=== PATIENT | male | born 1980 | race Caucasian/White ===

== ENCOUNTER → 2020-11-12 | Emergency (ER) | payer SELFPAY ==
--- OUTSIDE RECORDS SUMMARY | 2020-11-13 09:46 | XMS REPORT | Continuity of Care Document ---
:1980 Author Organization [facility] t Address 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 09-21 Family disease Disease 00:00: Practic 00 e Gastroesop Gastroesop Problem Active [facility] illage hageal hageal 09-21 Family reflux Reflux 00:00: Practic disease Disease 00 e without without esophagiti Esophagiti s s 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 00:00: Practi c kidney Kidney 00 e Allergies, Adverse Reactions, Alerts Allergy Allergy Status Severity Reaction(s) Onset Inactive Treating Comm ents Source Name Type Date Date Clinician NUT - Allergy Active [place] UNSPECIF to Family IED substanc Practic e e Family History Family Member Diagnosis Comments Start Date Stop Date Source Natural sister No Known Problems Met [facility] Natural brother No Known Problems [facility] Natural father GERD [facility] Natural father [facility] Maternal grandfather [facility] Maternal grandmother [facility] Natural mother No Known Problems Met [facility] Paternal grandfather [facility] Paternal grandmother No Known Problems [facility] Social History Social Habit Start Date Stop Date Quantity Comments Source Tobacco use and 2016-09-27 2016-09-27 [facility] used [facility] 00:[facility]00 Hospital Alcohol intake 2016-09-27 2016-09-27 [facility] 00:[facility]00 00:00:00 alcohol (finding) Hospita l Alcohol Comment 2016-09-27 2016-09-27 occasional [facility] 00:[facility]:00 Hospital Sex Assigned At [birth year] [facility] 00:[facility] Smoking Status Start Date Stop Date Source Former [facility] Medications Ordered Filled Start Stop Current Ordering Indication Dosage Frequency Signature Comments Components Source Medication Medication Date Date Medication? Clinician (SIG) Name Name cholecalcif Yes [id number] 2000U QD Take 1 [facility], 6-[address] vitamin D3, 00:00: (2,000 [facility]osp [facility] (VITAMIN 00 Units l D3) 2,000 total) by unit mouth capsule daily. capsule losartan Yes 25mg QD Take 25 mg [facility] (COZAAR) 25 -[address] MG tablet 14:58: daily. Hospit a 22 l loratadine Yes 10mg QD Take 10 mg M [facility]i (CLARITIN) 6-[address] 10 mg 14:58: daily. Hospita tablet 22 l fexofenadin Yes 180mg QD Take 180 M ethodi e (MED) 6-[address] 180 MG 14:58: mouth Hospita tablet 22 daily. l IODINE ORAL Yes Take by [facility] 6-[address] 14:58: Hospita 22 l albuterol Yes [id number] 2{puff} Q6H Inhale 2 [facility] (PROVENTIL 6-[address] HFA) 90 00:00: every 6 Hospita mcg/actuati 00 (six) l on inhaler hours as needed for wheezing. omeprazole 2017-0 Yes [id number] 40mg QD Take 1 [facility] (PriLOSEC) 6-[address] 40 MG 00:00: (40 mg Hospita capsule 00 total) by l mouth daily. escitalopra escitalopra No 1 Q1D escitalopr [place] m 10 mg m 10 mg am 10 mg Famil y tablet Take tablet Take tablet Practic 1 tablet 1 tablet Take 1 e every day every day tablet by oral by oral every day route. route. by oral route. omeprazole omeprazole No omeprazole [facility] 40 mg 40 mg 40 mg Family capsule,del capsule,del capsule,de Practic ayed ayed layed e release release release Take 1 Take 1 Take 1 capsule capsule capsule every day every day every day by oral by oral by oral route as route as route as needed. needed. needed. ProAir HFA ProAir HFA No 2puff(s Q6H ProAir HFA [facility] 90 90 ) 90 Family mcg/actuati mcg/actuati mcg/actuat Practic on aerosol on aerosol ion e inhaler inhaler aerosol Inhale 2 Inhale 2 inhaler puffs every puffs every Inhale 2 6 hours by 6 hours by puffs inhalation inhalation every 6 route as route as hours by needed. needed. inhalation route as needed. Immunizations Ordered Immunization Filled Immunization Date Status Commen ts Source Name Name influenza, influenza, 2019-01-09 Completed [facility] injectable, injectable, 00:00:00 Practice quadrivalent quadrivalent influenza, influenza, 2017-12-07 Completed [facility] injectable, injectable, 16:38:00 Practice quadrivalent, quadrivalent, preservative free preservative free influenza, influenza, 2016-12-10 Completed [facility] unspecified unspecified 00:00:00 Practice formulation formulation Tdap 2014-12-10 Completed [facility] Tdap Tdap 2014-04-11 Completed [facility] 00:00:00 Practice Meningococcal 2001-12-10 Completed [facility] Conjug[facility] 00:00:00 Hospital Vital Signs Vital Name Observation Time Observation Value Comments Source BP Diastolic 2019-02-08 00:00:00 72 mm[Hg] [facility] Height 2019-02-08 00:00:00 70 [in_i] [facility] BMI (Body Mass 2019-02-08 00:00:00 26.4 kg/m2 [facility] Index) Practice BP Systolic 2019-02-08 00:00:00 130 mm[Hg] [facility] Body Weight 2019-02-08 00:00:00 184 [lb_av] [facility] Procedures Procedure Date / Time Performed Performing Clinician Sourc e Tonsilectomy/adenoids 1987-04-11 00:00:00 [facility] Ear Tube 1986-04-11 00:00:00 [facility] ly [facility] Plan of Care Planned Activity Planned Date Details Comments Source Diagnostic Test 2019-02-08 CBC w/ auto diff [facility] Pending 00:00:00 [code = CBC w/ auto Practice diff] Diagnostic Test 2019-02-08 CMP, serum or [facility] Pending 00:00:00 plasma [code = CMP, Practice serum or plasma] Diagnostic Test 2019-02-08 TSH, serum or [facility] Pending 00:00:00 plasma [code = TSH, Practice serum or plasma] Diagnostic Test 2019-02-08 lipid panel, serum [facility] Pending 00:00:00 [code = lipid Practice panel, serum] Future Scheduled Test COVID-19 VACCINE [facility] (1) [code = COVID-19 VACCINE (1)] Future Scheduled Test INFLUENZA VACCINE [facility] [code = INFLUENZA VACCINE] Instructions [facility] Encounters Start End Encounter Admission Attending Care Care Encounter Source Date/Time Date/Time Type Type Clinicians Facility Department ID 2019-02-08 2019-02-08 Saul Scott [facility] [place] - [id number] 1 [facility] 00:00:00 00:00:00 MD Karmen: [facility] y [address] [facility], Practice - [address], [place] [address] , Ph. Results Test Description Test Time Test Comments Results Result Comments Source BASIC METABOLIC PANEL 2019-07-03 13:10:00 Test Item Value Reference Range Interpretation Comme nts SODIUM (test code = NA) 138 mmol/L 134-147 N POTASSIUM (test code = K) 3.9 mmol/L 3.4-5.0 N CHLORIDE (test code = CL) 103 mmol/L 100-108 N CARBON DIOXIDE (test code = CO2) 29 mmol/L 21-32 N ANION GAP (test code = GAP) 6.0 GAP calc 4.0-15.0 N GLUCOSE (test code = GLU) 93 MG/DL 70-110 N BLOOD UREA NITROGEN (test code = BUN) 11 MG/DL 7-18 N GLOMERULAR FILTRATION RATE (test code = GFR) >=60 max estimate estG FR >60 CREATININE (test code = CREAT) 1.2 MG/DL 0.8-1.3 N CALCIUM (test code = CA) 8.8 MG/DL 8.5-10.1 N URIC [id number] 13:10:00 Test Item Value Reference Range Interpretation Comments URIC ACID (test code = URIC) 4.2 MG/DL 3.5-8.5 N CBC W/AUTO [id number] 13:00:00 Test Item Value Reference Range Interpretation Comments WHITE BLOOD CELL (test code = 6.3 K/mm3 3.5-11.0 N WBC) RED BLOOD CELL (test code = RBC) 4.98 M/mm3 4.70-6.10 N HEMOGLOBIN (test code = HGB) 14.9 G/DL 12.3-15.9 N HEMATOCRIT (test code = HCT) 45.5 % 35.8-46.7 N MEAN CELL VOLUME (test code = 91.4 Fl 86.3-98.9 N MCV) MEAN CELL HGB (test code = MCH) 29.9 pg 28.9-34.4 N MEAN CELL HGB CONCETRATION (test 32.7 G/DL 32.1-34.5 N code = MCHC) RED CELL DISTRIBUTION WIDTH (test 12.7 SD 11.5-14.5 N code = RDW) PLATELET COUNT (test code = PLT) 227.0 K/mm3 150-450 N MEAN PLATELET VOLUME (test code = 9.30 fL 7.0-9.6 N MPV) NEUTROPHIL % (test code = NT%) 55.8 % 40-76 N LYMPHOCYTE % (test code = LY%) 28.5 % 20.5-51.1 N MONOCYTE % (test code = MO%) 11.1 % 1.7-9.3 H EOSINOPHIL % (test code = EO%) 4.1 % 0.0-6.0 N BASOPHIL % (test code = BA%) 0.5 % 0.0-2.0 N NEUTROPHIL # (test code = NT#) 3.53 K/mm3 1.8-7.6 N LYMPHOCYTE # (test code = LY#) 1.8 K/mm3 0.6-3.0 N MONOCYTE # (test code = MO#) 0.7 K/mm3 0.2-1.5 N EOSINOPHIL # (test code = EO#) 0.3 K/mm3 0.0-0.4 N BASOPHIL # (test code = BA#) 0.0 K/mm3 0.0-0.2 N MANUAL DIFF REQUIRED (test code = NO DIFF/SCN CRITERIA MDIFF) UA RFLX MICR CULT IF [id number] 12:56:00 Test Item Value Reference Range Interpretation Comments UA COLOR (test code = COLU) YELLOW discript YEL/STRAW UA APPEARANCE (test code = CLEAR discript CLEAR APPU) UA GLUCOSE DIPSTICK (test NEGATIVE mg/dL NEG code = DGLUU) UA BILIRUBIN DIPSTICK (test NEGATIVE mg/dL NEG code = BILU) UA KETONE DIPSTICK (test NEGATIVE mg/dL NEG code = KETU) UA SPECIFIC GRAVITY (test 1.015 SG 1.005-1.030 code = SGU) UA BLOOD DIPSTICK (test NEGATIVE mg/DL NEG code = JEAN PAUL) UA PH DIPSTICK (test code = 6.0 pH UNITS 5.0-7.0 ZEB) UA PROTEIN DIPSTICK (test NEGATIVE mg/dL NEG code = PROU) UA UROBILINIOGEN DIPSTICK 0.2 mg/dL <2.0 (test code = URO) UA NITRITE DIPSTICK (test NEGATIVE SCREEN NEG code = MAICO) UA LEUKOCYTE ESTERASE NEGATIVE Leuk/mcL NEGATIVE DIPSTICK (test code = LEUU) UA CULTURE NEEDED? (test Criteria Culture CHK code = UACULT) UA RFLX MICR CULT IF [id number] 12:56:00 Test Item Value Reference Range Interpretation Comments UA COLOR (test code = COLU) YELLOW discript YEL/STRAW UA APPEARANCE (test code = CLEAR discript CLEAR APPU) UA GLUCOSE DIPSTICK (test NEGATIVE mg/dL NEG code = DGLUU) UA BILIRUBIN DIPSTICK (test NEGATIVE mg/dL NEG code = BILU) UA KETONE DIPSTICK (test NEGATIVE mg/dL NEG code = KETU) UA SPECIFIC GRAVITY (test 1.015 SG 1.005-1.030 code = SGU) UA BLOOD DIPSTICK (test NEGATIVE mg/DL NEG code = JEAN PAUL) UA PH DIPSTICK (test code = 6.0 pH UNITS 5.0-7.0 ZEB) UA PROTEIN DIPSTICK (test NEGATIVE mg/dL NEG code = PROU) UA UROBILINIOGEN DIPSTICK 0.2 mg/dL <2.0 (test code = URO) UA NITRITE DIPSTICK (test NEGATIVE SCREEN NEG code = MAICO) UA LEUKOCYTE ESTERASE NEGATIVE Leuk/mcL NEGATIVE DIPSTICK (test code = LEUU)
== END ==
LOC: EDSTATUS 09:41 → ER 15:22 → EMPHEALTH 15:22
DX: U07.1 COVID-19 (principal)
CPT/HCPCS: U0003